=== PATIENT | male | born 1985 | race African-American/Black ===

== ENCOUNTER 2021-02-11 03:47 | Emergency (ER) | payer SELFPAY ==
[~2021-02-11] VITALS: Ht 165.1 cm; Wt 67.0 kg
[~2021-02-11 03:47] MED LIST: ALBU18HF2 IH
[2021-02-11] MEDS ORDERED: ALBUTEROL (0.083%) 2.5MG/3ML NEB HHN STA (04:15)
[2021-02-11] MEDS ORDERED: PREDNISONE 20MG TABLET PO STA (04:15)
[2021-02-11] MEDS ORDERED: IPRATROPIUM BROMIDE (0.02%) 0.5MG/2.5ML NEB HHN STA (04:15)
[2021-02-11] MEDS ORDERED: PRED10TA MT (05:39)
[2021-02-11 06:00] VITALS: BP 134/84
== END 2021-02-11 06:20 | disposition home or self-care (01) ==
LOC: ER 03:47
DX: R06.02 Shortness of breath (principal); J45.909 Unspecified asthma, uncomplicated
CPT/HCPCS: 71045; 94644; 99285; J7512; Z7610